=== PATIENT | female | born 1970 | race Caucasian/White ===

== ENCOUNTER 2016-09-26 09:33 | Emergency (ER) | payer OTHER ==
[~2016-09-26 09:33] MED LIST: PRENTAB66 PO; PRIL40CA PO
--- NOTE | 2016-09-26 10:27 | EDDOCDS ---
Nurse's Notes [facility] Name: Shelley Davidson Age: 45 yrs Sex: Female : 1970 Arrival Date: 09/26/2016 Time: 09:33 Bed TR7 Private MD: NO PRIMARY PHYSICIAN, . Diagnosis: Acute serous otitis media, right ear Presentation: 09/26 09:57 Presenting complaint: Patient states: c/o right ear pain x 2 days worse today. can feel bcj throbbing in ear. no drainage. no temp at home. Adult Sepsis Screening: The patient does not have new or worsening altered mentation. Patient's respiratory rate is less than 22. Systolic blood pressure is greater than 100. Patient has a qSOFA score of 0- Negative Sepsis Screen. Suicide/Homicide risk assessment- the patient denies having any suicidal and/or homicidal ideations and does not present with any other emotional, behavioral or mental health complaints. Status: Patient is not a business services director or dependent. Transition of care: patient was not received from another setting of care. 09:57 Acuity: HILARY Level 5 bcj 09:57 Method Of Arrival: Walkin/Carried/Asstd bcj Triage Assessment: 09:59 General: Appears in no apparent distress, comfortable, Behavior is cooperative. Pain: bcj Location: right ear Pain currently is 7 out of 10 on a pain scale. HIV screening NA for this visit Offered previously. EENT: No deficits noted. 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 none - PMHx: none; - PSHx: ; - Social history: Smoking status: Patient uses tobacco products, heavy tobacco smoker. No barriers to communication noted, The patient speaks fluent Arabic, Speaks appropriately for age. - Family history: Not pertinent. - : The pt / caregiver states he / she is not on anticoagulants. Home medication list is obtained from the patient. - Exposure Risk Screening:: None identified. Screenin:24 Screening information is obtained from the patient. Fall risk: No risks identified. bcj Assistance ADL's: requires no assistance with activities of daily living. Abuse/DV Screen: The patient / caregiver reports he/she is: not in a situation that causes fear, pain or injury. Nutritional screening: No deficits noted. Advance Directives: Currently, there is no health care proxy. home support is adequate. Assessment: 10:24 General: Appears in no apparent distress, comfortable, Behavior is cooperative. Pain: bcj Location: right ear. EENT: Ear canal clear on right ear. Vital Signs: 09:36 BP 163 / 80; Pulse 95; Resp 18; Temp 98.7; Pulse Ox 99% ; Weight 95.25 kg; Height 5 ft. elp 4 in. (162.56 cm); Pain 7/10; 09:36 Body Mass Index 36.05 (95.25 kg, 162.56 cm) elp Vitals: 09:36 Log In Time: September 26, 2016 at 09:34. [facility] ED Course: 09:35 Patient visited by Sonia Prado PCA. elp 09:35 Patient moved to Waiting elp 09:36 NO PRIMARY PHYSICIAN, . is Private Physician. elp 09:37 Patient visited by Sonia Prado PCA. elp 09:37 Patient moved to Pre RCE elp 09:59 Triage Initiated bcj 10:00 Patient visited by Haseeb Jeong RN. bcj 10:10 Patient moved to Triage 1 dwg 10:11 Francisco Morrison [facility] ar2 10:11 Joshua Real MD is Attending Physician. ar2 10:11 Patient visited by Francisco Morrison PA-C. ar2 10:16 [facility] is Referral Physician. ar2 10:24 No apparent distress. Resting quietly. Awaiting disposition. bcj 10:24 The patient / caregiver is instructed regarding the plan of care and ED course. Patient bcj has correct armband on for positive identification. 10:24 No IV's were initiated during this patient's visit. No procedures done that require bcj assistance. 10:26 Patient moved to TR7 ct3 10:27 Patient visited by Haseeb Jeong RN. bcj Order Results: There are currently no results for this order. Outcome: 10:16 Discharge ordered by Provider. ar2 10:24 Discharge Assessment: patient administered narcotics - no. The following High Risk bcj Discharge criteria are identified: None. Discharged to home. Condition: stable. Discharge instructions given to patient, Instructed on discharge instructions, follow up and referral plans. medication usage, Prescriptions given X 1. No special radiology studies were completed. Property :Personal belongings accompany Pt. 10:26 Patient left the ED. victor hugo Signatures: Julio Ayon RN RN dwg Johnson, Bruce, RN RN bcj Robertshaw, Aaron, JUSTIN PASantiago ar2 Boone, Esperanza, PURCHASING/RECEIVING PURCHASING/RECEIVING ct3 Patchen, Sonia, PURCHASING/RECEIVING PURCHASING/RECEIVING elp MTDD
--- NOTE | 2016-09-26 10:27 | EDDOCDS ---
Physician Documentation [facility] Name: Shelley Davidson Age: 45 yrs Sex: Female : 1970 Arrival Date: 09/26/2016 Time: 09:33 Bed TR7 Private MD: NO PRIMARY PHYSICIAN, . Disposition: 09/26/16 10:16 Discharged to Home/Self Care. Impression: Acute serous otitis media, right ear. - Condition is Stable. - Discharge Instructions: Serous Otitis Media, Smoking Cessation. - Prescriptions for Fluticasone 50 mcg/actuation Nasal [place], Suspension - inhale 2 spray by INTRANASAL route once daily; 1 bottle. - Medication Reconciliation, Local Pharmacy Hours form. - [facility] up: [facility]; When: Call to arrange an appointment; Reason: To establish care. - Problem is new. - Symptoms are unchanged. Historical: - Allergies: no known allergies; - Home Meds: 1. none - PMHx: none; - PSHx: ; - Social history: Smoking status: Patient uses tobacco products, heavy tobacco smoker. No barriers to communication noted, The patient speaks fluent Swedish, Speaks appropriately for age. - Family history: Not pertinent. - : The pt / caregiver states he / she is not on anticoagulants. Home medication list is obtained from the patient. - Exposure Risk Screening:: None identified. 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 4 in. (162.56 cm); Pain 7/10; 09:36 Body Mass Index 36.05 (95.25 kg, 162.56 cm) elp MDM: 10:19 Financial registration complete. lg Signatures: Haseeb Jeong RN RN Stephen Ramirez Reg Reg lg Robertshaw, Aaron, PA-C PA-C ar2 MTDD
--- NOTE | 2016-09-28 11:27 | EDDOCDS ---
Physician Documentation [facility] Name: Shelley Davidson Age: 45 yrs Sex: Female : 1970 Arrival Date: 09/26/2016 Time: 09:33 Bed TR7 Private MD: NO PRIMARY PHYSICIAN, . Disposition: 09/26/16 10:16 Discharged to Home/Self Care. Impression: Acute serous otitis media, right ear. - Condition is Stable. - Discharge Instructions: Serous Otitis Media, Smoking Cessation. - Prescriptions for Fluticasone 50 mcg/actuation Nasal [place], Suspension - inhale 2 spray by INTRANASAL route once daily; 1 bottle. - Medication Reconciliation, Local Pharmacy Hours form. - Follow up: [facility]; When: Call to arrange an appointment; Reason: To establish care. - Problem is new. - Symptoms are unchanged. Historical: - Allergies: no known allergies; - Home Meds: 1. none - PMHx: none; - PSHx: ; - Social history: Smoking status: Patient uses tobacco products, heavy tobacco smoker. No barriers to communication noted, The patient speaks fluent Moroccan, Speaks appropriately for age. - Family history: Not pertinent. - : The pt / caregiver states he / she is not on anticoagulants. Home medication list is obtained from the patient. - Exposure Risk Screening:: None identified. 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 4 in. (162.56 cm); Pain 7/10; 09:36 Body Mass Index 36.05 (95.25 kg, 162.56 cm) elp MDM: 10:19 Financial registration complete. lg 11:30 [facility] Payment Agreement was scanned into Locu and attached to record. lg 14:29 T-Sheet-- Draft Copy was scanned into Locu and attached to record. gb Signatures: Haseeb Jeong RN RN [facility] Yuni Olivas, Reg Reg gb Stephen Phillips, Reg Reg lg Francisco Morrison, PA-C PAStephanyC ar2 The chart was reviewed and I authenticate all verbal orders and agree with the evaluation and treatment provided.Attachments: 11:30 [facility] Payment Agreement lg 14:29 T-Sheet-- Draft Copy gb Chart Complete MTDD
--- NOTE | 2016-09-28 11:27 | EDDOCDS ---
Nurse's Notes [facility] Name: Shelley Davidson Age: 45 yrs Sex: Female : 1970 Arrival Date: 09/26/2016 Time: 09:33 Bed TR7 Private MD: NO PRIMARY PHYSICIAN, . Diagnosis: Acute serous otitis media, right ear Presentation: 09/26 09:57 Presenting complaint: Patient states: c/o right ear pain x 2 days worse today. can feel bcj throbbing in ear. no drainage. no temp at home. Adult Sepsis Screening: The patient does not have new or worsening altered mentation. Patient's respiratory rate is less than 22. Systolic blood pressure is greater than 100. Patient has a qSOFA score of 0- Negative Sepsis Screen. Suicide/Homicide risk assessment- the patient denies having any suicidal and/or homicidal ideations and does not present with any other emotional, behavioral or mental health complaints. 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 Transition of care: patient was not received from another setting of care. 09:57 Acuity: HILARY Level 5 bcj 09:57 Method Of Arrival: Walkin/Carried/Asstd bcj Triage Assessment: 09:59 General: Appears in no apparent distress, comfortable, Behavior is cooperative. Pain: bcj Location: right ear Pain currently is 7 out of 10 on a pain scale. HIV screening NA for this visit Offered previously. EENT: No deficits noted. 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 none - PMHx: none; - PSHx: ; - Social history: Smoking status: Patient uses tobacco products, heavy tobacco smoker. No barriers to communication noted, The patient speaks fluent Syriac, Speaks appropriately for age. - Family history: Not pertinent. - : The pt / caregiver states he / she is not on anticoagulants. Home medication list is obtained from the patient. - Exposure Risk Screening:: None identified. Screenin:24 Screening information is obtained from the patient. Fall risk: No risks identified. bcj Assistance ADL's: requires no assistance with activities of daily living. Abuse/DV Screen: The patient / caregiver reports he/she is: not in a situation that causes fear, pain or injury. Nutritional screening: No deficits noted. Advance Directives: Currently, there is no health care proxy. home support is adequate. Assessment: 10:24 General: Appears in no apparent distress, comfortable, Behavior is cooperative. Pain: bcj Location: right ear. EENT: Ear canal clear on right ear. Vital Signs: 09:36 BP 163 / 80; Pulse 95; Resp 18; Temp 98.7; Pulse Ox 99% ; Weight 95.25 kg; Height 5 ft. elp 4 in. (162.56 cm); Pain 7/10; 09:36 Body Mass Index 36.05 (95.25 kg, 162.56 cm) elp Vitals: 09:36 Log In Time: September 26, 2016 at 09:34. [facility] ED Course: 09:35 Patient visited by Sonia Prado PCA. elp 09:35 Patient moved to Waiting elp 09:36 NO PRIMARY PHYSICIAN, . is Private Physician. elp 09:37 Patient visited by Sonia Prado PCA. elp 09:37 Patient moved to Pre RCE elp 09:59 Triage Initiated bcj 10:00 Patient visited by Haseeb Jeong RN. bcj 10:10 Patient moved to Triage 1 dwg 10:11 Francisco Morrison [facility]C [facility]. ar2 10:11 Joshua Real MD is Attending Physician. ar2 10:11 Patient visited by Francisco Morrison PA-C. ar2 10:16 [facility] is Referral Physician. ar2 10:24 No apparent distress. Resting quietly. Awaiting disposition. bcj 10:24 The patient / caregiver is instructed regarding the plan of care and ED course. Patient bcj has correct armband on for positive identification. 10:24 No IV's were initiated during this patient's visit. No procedures done that require bcj assistance. 10:26 Patient moved to TR7 ct3 10:27 Patient visited by Haseeb Jeong RN. bcj 11:30 [facility] [place] Agreement was scanned into [employer] and attached to record. lg 14:29 T-Sheet-- Draft Copy was scanned into [email or web address] and attached to record. gb Order Results: There are currently no results for this order. Outcome: 10:16 Discharge ordered by Provider. ar2 10:24 Discharge Assessment: patient administered narcotics - no. The following High Risk j Discharge criteria are identified: None. Discharged to home. Condition: stable. Discharge instructions given to patient, Instructed on discharge instructions, follow up and referral plans. medication usage, Prescriptions given X 1. No special radiology studies were completed. Property :Personal belongings accompany Pt. 10:26 Patient left the ED. j Signatures: Julio Ayon RN RN dwg Johnson, Bruce, RN RN bcYuni Vargas, Reg Reg gb Stephen Phillips, Reg Reg lg Francisco Morrison, PA-Aristides PA-C ar2 Boone, Esperanza, ERGONOMIC SPECIALIST ERGONOMIC SPECIALIST ct3 Patchen, Sonia, ERGONOMIC SPECIALIST ERGONOMIC SPECIALIST elp Chart Complete MTDD
--- NOTE | 2016-09-28 11:27 | EDDOCDS ---
Physician Documentation [facility] Name: Shelley Davidson Age: 45 yrs Sex: Female : 1970 Arrival Date: 09/26/2016 Time: 09:33 Bed TR7 Private MD: NO PRIMARY PHYSICIAN, . Disposition: 09/26/16 10:16 Discharged to Home/Self Care. Impression: Acute serous otitis media, right ear. - Condition is Stable. - Discharge Instructions: Serous Otitis Media, Smoking Cessation. - Prescriptions for Fluticasone 50 mcg/actuation Nasal [place], Suspension - inhale 2 spray by INTRANASAL route once daily; 1 bottle. - Medication Reconciliation, Local Pharmacy Hours form. - Follow up: [facility]; When: Call to arrange an appointment; Reason: To establish care. - Problem is new. - Symptoms are unchanged. Historical: - Allergies: no known allergies; - Home Meds: 1. none - PMHx: none; - PSHx: ; - Social history: Smoking status: Patient uses tobacco products, heavy tobacco smoker. No barriers to communication noted, The patient speaks fluent Greek, Speaks appropriately for age. - Family history: Not pertinent. - : The pt / caregiver states he / she is not on anticoagulants. Home medication list is obtained from the patient. - Exposure Risk Screening:: None identified. 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 4 in. (162.56 cm); Pain 7/10; 09:36 Body Mass Index 36.05 (95.25 kg, 162.56 cm) elp MDM: 10:19 Financial registration complete. lg 11:30 [facility] Payment Agreement was scanned into NextDigest and attached to record. lg 14:29 T-Sheet-- Draft Copy was scanned into NextDigest and attached to record. gb Signatures: Haseeb Jeong RN RN [facility] Yuni Olivas, Reg Reg gb Stephen Phillips, Reg Reg lg Francisco Morrison, PA-C PAStephanyC ar2 The chart was reviewed and I authenticate all verbal orders and agree with the evaluation and treatment provided.Attachments: 11:30 [facility] Payment Agreement lg 14:29 T-Sheet-- Draft Copy gb Chart Complete MTDD
== END 2016-09-26 10:26 | disposition home or self-care (01) ==
LOC: M ED 09:33
DX: H65.01 Acute serous otitis media, right ear (principal); F17.200 Nicotine dependence, unspecified, uncomplicated

== ENCOUNTER 2018-04-26 17:01 | Emergency (ER) | payer SELFPAY, OTHER ==
[2018-04-26] MEDS: IBUPROFEN 600 MG TAB PO (17:45)
[2018-04-26] MEDS: ACETAMINOPHEN TAB 650MG DOSE (2X325MG) PO (17:45)
[2018-04-26] MEDS: NS 1,000 ML IV (17:45)
[2018-04-26 18:08] LABS: BASO % 0.2 % (0.0-1.0); HEMATOCRIT 42.1 % (36.0-47.0); HEMOGLOBIN 14.7 g/dl (12.0-15.5); IMMATURE GRANULOCYTE % 0.4 % (0-3.0); LYMPH # 1.1 10^3/uL (1.5-4.5); LYMPH % 12.7 % (24.0-44.0); MEAN CORPUSCULAR HEMOGLOBIN 29.6 pg (27.0-33.0); MEAN CORPUSCULAR HGB CONC 34.9 g/dl (32.0-36.5); MEAN CORPUSCULAR VOLUME 84.7 fl (80.0-96.0); MONO # 0.3 10^3/uL (0.0-0.8); MONO % 3.7 % (0.0-5.0); PLATELET COUNT, AUTOMATED 276 10^3/uL (150-450); RED BLOOD COUNT 4.97 10^6/uL (4.00-5.40); RED CELL DISTRIBUTION WIDTH 13.8 % (11.5-14.5); WHITE BLOOD COUNT 8.4 10^3/uL (4.0-10.0)
[2018-04-26 18:30] LABS: ANION GAP 10 MEQ/L (8-16); BLOOD UREA NITROGEN 6 MG/DL (7-18); CALCIUM LEVEL 8.3 MG/DL (8.5-10.1); CARBON DIOXIDE LEVEL 22 MEQ/L (21-32); CHLORIDE LEVEL 105 MEQ/L (98-107); CREATININE FOR GFR 0.82 MG/DL (0.55-1.30); GLOMERULAR FILTRATION RATE > 60.0 (>58); GLUCOSE, FASTING 109 MG/DL (70-100); POTASSIUM SERUM 4.1 MEQ/L (3.5-5.1); SODIUM LEVEL 137 MEQ/L (136-145)
[2018-04-26] MEDS ORDERED: NS 1,000 ML IV (19:00)
[2018-04-26] MEDS: ACETAMINOPHEN 325 MG TAB PO (19:01)
[2018-04-26] MEDS: IBUPROFEN 400 MG TAB PO (19:01)
[2018-04-26] MEDS: cefTRIAXone SOD 1 GM VIAL (J0696) IM (19:24)
== END 2018-04-26 19:32 | disposition home or self-care (01) ==
LOC: M ED 17:01
DX: J18.9 Pneumonia, unspecified organism (principal); F17.200 Nicotine dependence, unspecified, uncomplicated
CPT/HCPCS: J0696